=== PATIENT | female | born 1955 | race Caucasian/White ===

== ENCOUNTER 2016-08-18 16:41 | Emergency (ER) | payer MEDICARE ==
[2016-08-18 20:47] LABS: HEMOGLOBIN 12.4 gm/dl (12.3-15.3); RED BLOOD COUNT 3.93 M/UL (4.00-5.10); WHITE BLOOD COUNT 6.9 K/UL (4.5-11.0)
[2016-08-18 21:22] LABS: BUN/CREATININE RATIO 20 (0-10)
== END 2016-08-18 23:50 | disposition home or self-care (01) ==
LOC: ER1 16:41
PROVIDERS: Specialist/Technologist Athletic Trainer
DX: R00.2 Palpitations (principal); I25.10 Atherosclerotic heart disease of native coronary artery without angina pectoris; I10 Essential (primary) hypertension; Z95.810 Presence of automatic (implantable) cardiac defibrillator; Z79.899 Other long term (current) drug therapy
CPT/HCPCS: 36415; 71010; 80053; 82550; 82553; 83874; 84439; 84443; 84484; 85025; 85610; 85730; 93005; 99285; J7040